=== PATIENT | female | born 1980 | race Caucasian/White ===

== ENCOUNTER → 2016-11-03 | Outpatient (REF) | payer OTHER ==
[~2016-11-03] MED LIST: ACET50TA PO; COLA100C3 PO; DIBU1OI TOP; IBUP-1114 PO; PREN27TA3 PO
== END ==
LOC: M SFHCWAGY 14:56
PROVIDERS: ATTEND Family Medicine
DX: Z11.3 Encounter for screening for infections with a predominantly sexual mode of transmission (principal); Z12.4 Encounter for screening for malignant neoplasm of cervix

== ENCOUNTER → 2016-11-03 | Outpatient (REF) | payer OTHER | LOC: M LAB REF 16:55 | PROVIDERS: ATTEND Family Medicine | DX: Z11.3 Encounter for screening for infections with a predominantly sexual mode of transmission (principal) ==

== ENCOUNTER → 2017-11-23 | Outpatient (REF) | payer OTHER | LOC: M SFHCWAGY 08:45 | DX: Z12.4 Encounter for screening for malignant neoplasm of cervix (principal); Z11.3 Encounter for screening for infections with a predominantly sexual mode of transmission | CPT/HCPCS: G0123 ==

== ENCOUNTER → 2018-11-29 | Outpatient (REF) | payer OTHER ==
[~2018-11-29] MED LIST changes: -ACET50TA PO; -COLA100C3 PO; +COLA100C5 PO; +DIBU10OI TOP; -DIBU1OI TOP; +MAPA500T2 PO
== END ==
LOC: M SFHCWAGY 16:01
PROVIDERS: ATTEND Family Medicine
DX: Z12.4 Encounter for screening for malignant neoplasm of cervix (principal)
CPT/HCPCS: G0123; G0463

== ENCOUNTER → 2019-03-14 | Outpatient (REF) | payer OTHER | LOC: M SFHCLERA 14:57 | PROVIDERS: ATTEND Nurse Practitioner Family | DX: J35.8 Other chronic diseases of tonsils and adenoids (principal) ==

== ENCOUNTER → 2019-10-08 | Outpatient (REF) | payer OTHER | LOC: M SFHCLERA 14:22 | PROVIDERS: ATTEND Nurse Practitioner Family | DX: R30.0 Dysuria (principal) | CPT/HCPCS: 81002; 81025; 87086; G0463 ==